=== PATIENT | female | born 1935 | race Caucasian/White ===

== ENCOUNTER 2016-10-07 12:44 | Emergency (ER) | payer OTHER, MEDICARE ==
[~2016-10-07] VITALS: Ht 157.5 cm; Wt 62.5 kg
[~2016-10-07 12:44] MED LIST: AMLODIPINE BESYL5 MG PO; AZO YEAST; Antivert PO; B COMPLEX1 EAC2 PO; CALCITRATE200 MG PO; COLACE100 MG PO; COUMADIN,JANTO2.5 MG PO; CRANBERRY TABL1 EACH PO; FLOVENT 11120 INHALA IH; Feosol PO; Flagyl PO; GABAPENTIN600 MG PO; GRALISE600 MG PO; K-DUR20 MEQ PO; LOPRESSOR12.5 MG PO; LOVASTATIN40 MG PO; Levaquin PO; MAPAP500 MG PO; NEURONTIN600 MG PO; NORVASC5 MG PO; Oyst-Cal D, Oscal W/ PO; PRAVASTATIN SOD40 MG PO; PROTONIX40 M1 PO; PROTONIX40 MG PO; RYBIX ODT50 MG PO; SENOKOT S,PE1 TABLET PO; STOOL SOFTENER100 MG PO; THERAGRAN1 TABLET PO; TRAMADOL HCL50 MG PO; Tylenol Regular Stre PO; ULTRACET1 TABLET PO; Vitamin B Complex PO
[2016-10-07 13:19] LABS: HEMATOCRIT 42.4 % (36.0-46.0); MCHC 34.2 G/DL (30.0-36.0); MCV 90.6 FL (83-99); PLATELET COUNT 177 K/uL (156-360); RBC DIS.WIDTH-CV 12.1 % (11.8-14.6); RBC DIS.WIDTH-SD 39.9 % (39-53); RED BLOOD COUNT 4.68 M/uL (3.80-5.20)
[2016-10-07 13:31] LABS: CHLORIDE 100 mEq/L (99-109); POTASSIUM 4.1 mEq/L (3.7-5.4); SODIUM 136 mEq/L (136-147)
[2016-10-07 13:33] LABS: GLUCOSE 97 mg/dL (70-99)
[2016-10-07 13:34] LABS: ANION GAP 8 MEQ/L (2-14)
[2016-10-07 13:36] LABS: GFR ESTIMATE (CALCULATED) > 59 mL/min/
[2016-10-07 13:37] LABS: UREA NITROGEN (BUN) 10 mg/dL (9-23)
[2016-10-07] MEDS ORDERED: CARDIZEM CD,CA180 MG PO (15:34)
[2016-10-07] MEDS ORDERED: LOSARTAN POTAS100 MG PO (15:34)
[2016-10-07] MEDS ORDERED: ROSUVASTATIN CA10 MG PO (15:35)
[2016-10-07] MEDS ORDERED: LANSOPRAZOLE30 MG PO (15:35)
[2016-10-07] MEDS ORDERED: CALCIUM 500 MG1 EACH PO (15:35)
[2016-10-07 16:05] LABS: ADD MIUA? NO; BILIRUBIN NEGATIVE; BLOOD NEGATIVE; COLOR YELLOW ((YELLOW)); GLUCOSE (STRIP) NEGATIVE; KETONES NEGATIVE; LEUKOCYTES NEGATIVE; NITRITE NEGATIVE; PROTEIN (STRIP) 30; SPECIFIC GRAVITY 1.011 (1.000-1.030); UCUL ADDED? NO; UROBILINOGEN 0.2 MG/DL (0.2-1.0)
[2016-10-07 16:25] VITALS: BP 184/91
[2016-10-07 16:36] LABS: INTERNAL CONTROL VALID? YES
== END 2016-10-07 16:51 | disposition left against medical advice (07) ==
LOC: EME 12:44
PROVIDERS: Nurse Practitioner Family
DX: R19.5 Other fecal abnormalities (principal); R19.7 Diarrhea, unspecified; I10 Essential (primary) hypertension; E78.5 Hyperlipidemia, unspecified; K21.9 Gastro-esophageal reflux disease without esophagitis; R11.0 Nausea; R42 Dizziness and giddiness; Z87.440 Personal history of urinary (tract) infections; Z88.0 Allergy status to penicillin
CPT/HCPCS: 80048; 81003; 83630; 85027; 86900; 86901; 87177; 99281; 99283

== ENCOUNTER 2016-12-02 09:12 | Observation (INO) | payer OTHER, MEDICARE ==
[~2016-12-02] VITALS: Ht 157.5 cm; Wt 63.8 kg
[~2016-12-02 09:12] MED LIST changes: +CALCIUM 500 MG1 EACH PO; +CARDIZEM CD,CA180 MG PO; -GRALISE600 MG PO; +LANSOPRAZOLE30 MG PO; +LOSARTAN POTAS100 MG PO; +ROSUVASTATIN CA10 MG PO
[2016-12-02 10:17] LABS: CHLORIDE 90 mEq/L (99-109); POTASSIUM 4.3 mEq/L (3.7-5.4); SODIUM 125 mEq/L (136-147)
[2016-12-02 10:19] LABS: GLUCOSE 108 mg/dL (70-99)
[2016-12-02 10:20] LABS: ANION GAP 11 MEQ/L (2-14)
[2016-12-02 10:23] LABS: GFR ESTIMATE (CALCULATED) > 59 mL/min/
[2016-12-02 10:24] LABS: UREA NITROGEN (BUN) 7 mg/dL (9-23)
[2016-12-02 12:17] LABS: EOSINOPHIL (%) 0.7 % (0-5); HEMATOCRIT 37.7 % (36.0-46.0); IMMATURE GRANULOCYTE (%) 0.2 % (0.0-0.7); INSTRUMENT ABS NEUTROPHIL CT 3.3 K/uL; LYMPHOCYTE COUNT 0.7 K/uL (1.0-2.8); MCH 31.9 PG (29.0-34.0); MCHC 36.1 G/DL (30.0-36.0); MCV 88.5 FL (83-99); MONOCYTE (%) 5.1 % (3-12); MONOCYTE COUNT 0.2 K/uL (0-0.8); NEUTROPHIL (%) 77.4 % (45-76); NEUTROPHIL COUNT 3.3 K/uL (1.8-6.4); PLATELET COUNT 168 K/uL (156-360); RBC DIS.WIDTH-SD 38.9 % (39-53); RED BLOOD COUNT 4.26 M/uL (3.80-5.20); WHITE BLOOD COUNT 4.3 K/uL (4.1-10.2)
[2016-12-02] MEDS ORDERED: TRAMADOL HCL50 MG PO (13:04)
[2016-12-02] MEDS ORDERED: TRIMETHOPRIM100 MG PO (13:05)
[2016-12-02] MEDS ORDERED: MULTI VITAMIN1 EACH PO (13:08)
[2016-12-02] MEDS ORDERED: VITAMIN D-3 401 EACH PO (13:09)
[2016-12-02] MEDS ORDERED: PROBIOTIC1 EAC1 PO (13:09)
[2016-12-02] MEDS ORDERED: STOOL SOFTENER100 MG PO (13:10)
[2016-12-02 14:56] VITALS: BP 156/78
[2016-12-02] MEDS ORDERED: LANSOPRAZOLE30 MG PO (15:13)
[2016-12-02] MEDS ORDERED: ACETAMINOPHEN500 M9 PO (15:15)
[2016-12-02] MEDS ORDERED: CLEOCIN300 MG PO (15:16)
[2016-12-02] MEDS ORDERED: DAILY VALUE1 EACH PO (15:17)
[2016-12-02] MEDS ORDERED: CRANBERRY TABL1 EACH PO (15:18)
[2016-12-02] MEDS ORDERED: PROBIOTIC1 EAC5 PO (15:19)
[2016-12-02] MEDS ORDERED: CRESTOR10 MG PO (15:21)
[2016-12-02 19:03] LABS: C DIFF TOXIN NEGATIVE (NEGATIVE)
[2016-12-02 19:05] LABS: PROBE CHECK PASS; SPECIMEN PROCESSING CONTROL PASS
[2016-12-03 00:04] VITALS: BP 150/85
[2016-12-03 03:55] VITALS: BP 132/60; BP 137/60
[2016-12-03 07:29] LABS: ANION GAP 8 MEQ/L (2-14); CHLORIDE 103 MEQ/L (99-109); GFR ESTIMATE (CALCULATED) > 59 mL/min/; GLUCOSE 84 mg/dL (70-99); SAMPLE HEMOLYSIS CHECK 0; SAMPLE ICTERIC CHECK 0; SAMPLE LIPEMIA CHECK 0; UREA NITROGEN (BUN) 6 mg/dL (9-23)
[2016-12-03 07:35] LABS: SODIUM 137 MEQ/L (136-147)
[2016-12-03 07:45] VITALS: BP 160/68
[2016-12-03 11:51] VITALS: BP 160/74
[2016-12-03] MEDS ORDERED: CEPHALEXIN500 MG PO (13:14)
[2016-12-03] MEDS ORDERED: ZOFRAN4 MG PO (13:15)
== END 2016-12-03 15:19 | disposition home or self-care (01) ==
LOC: EME 09:12 → EDOF 12:39 → 5SOUTH 12:39 → ENRESERV 12:45 → 5SOUTH 14:19
PROVIDERS: Internal Medicine; Physician Assistant
DX: R11.2 Nausea with vomiting, unspecified (principal); R19.7 Diarrhea, unspecified; S61.255D Open bite of left ring finger without damage to nail, subsequent encounter; W54.0XXD Bitten by dog, subsequent encounter; E87.1 Hypo-osmolality and hyponatremia; I10 Essential (primary) hypertension; E78.5 Hyperlipidemia, unspecified; K21.9 Gastro-esophageal reflux disease without esophagitis; L40.9 Psoriasis, unspecified; Z80.0 Family history of malignant neoplasm of digestive organs
CPT/HCPCS: 80048; 85025; 87493; 87506; 99281; 99284; G0378; J1650; J2405; J7030; S0028